=== PATIENT | female | born 1990 | race African-American/Black ===

== ENCOUNTER 2021-10-15 21:03 | Emergency (ER) | payer SELFPAY ==
[~2021-10-15] VITALS: Ht 165.1 cm; Wt 91.0 kg
[2021-10-15] MEDS ORDERED: ONDANSETRON HCL 4MG/2ML INJ IV STA (21:23)
[2021-10-15] MEDS ORDERED: SODIUM CHLORIDE 0.9% 1,000 ML IV ONE (21:30)
[2021-10-15 22:10] LABS: BASOPHILS % 0.2 % (0.0-2.0); EOSINOPHILS % 1.4 % (0.0-5.0); HEMATOCRIT. 39.3 % (36.0-48.0); HEMOGLOBIN. 13.2 g/dL (12.0-16.0); LYMPHOCYTES % 24.3 % (20.0-50.0); MEAN CORPUSCULAR HEMOGLOBIN 28.5 pg (28.0-32.0); MEAN PLATELET VOLUME 7.7 fl (7.4-10.4); MONOCYTES % 8.7 % (2.0-8.0); NEUTROPHILS % 65.4 % (40.0-76.0); PLATELET 418 x1000/uL (130-400); RED BLOOD CELL COUNT 4.63 mill/uL (4.2-5.4); RED CELL DISTRIBUTION WIDTH 14.1 % (11.6-14.6)
[2021-10-15 22:13] LABS: CHLORIDE 109 mEq/L (98-107)
[2021-10-15 22:15] LABS: HCG SCREEN NEGATIVE
[2021-10-15 22:22] LABS: ETHANOL BLOOD < 10 mg/dL
[2021-10-15] MEDS ORDERED: ONDANSETRON HCL 4MG/2ML INJ IV NR (23:45)
[2021-10-15] MEDS ORDERED: ONDA4TAB5 MT (23:59)
[2021-10-16 00:37] VITALS: BP 132/79
== END 2021-10-16 00:43 | disposition home or self-care (01) ==
LOC: ER 21:03
DX: S09.8XXA Other specified injuries of head, initial encounter (principal); S40.022A Contusion of left upper arm, initial encounter; J45.909 Unspecified asthma, uncomplicated; F12.10 Cannabis abuse, uncomplicated; Y04.0XXA Assault by unarmed brawl or fight, initial encounter; Y07.03 Male partner, perpetrator of maltreatment and neglect; Y93.89 Activity, other specified; Y92.89 Other specified places as the place of occurrence of the external cause
CPT/HCPCS: 36415; 70450; 71045; 72125; 80053; 80320; 84703; 85025; 96361; 96374; 99285; J2405; J7030; G0480